=== PATIENT | male | born 1950 | race Caucasian/White ===

== ENCOUNTER 2016-05-29 06:54 | Day surgery (SDC) | payer BC ==
--- NOTE | ~2016-05-29 | EGD ---
EGD REPORT [facility] [address] [id number] NAME: SOCORRO MEIER : [birth year] STATUS : REG [facility]#: [id number] AGE: 65 ADM/REG DATE : 05/29/16 MR#: [id number] REPORT SERV DATE: 05/29/16 DICTATED BY: GLENN COWART DATE: 05/29/16 REPORT STATUS : Draft [facility]ANS[facility]ED BY: [facility] DATE: 05/29/16 [facility] Patient Name: Socorro Meier Date of : 1950 Attending MD: GLENN COWART MD Procedure Date No Time: 05/29/2016 Procedure: Colonoscopy Indications: Personal history of colonic polyps Referring MD: VALENTÍN ALVARENGA Medicines: Propofol per Anesthesia Complications: No immediate complications. Procedure: Pre-Anesthesia Assessment: - ASA Grade Assessment: III - A patient with severe systemic disease. After I obtained informed consent, the scope was passed under direct vision. Throughout the procedure, the patient's blood pressure, pulse, and oxygen saturations were monitored continuously. The CF [id number] was introduced through the anus and advanced to the cecum, identified by appendiceal orifice and ileocecal valve. The colonoscopy was performed without difficulty. The patient tolerated the procedure well. The quality of the bowel preparation was good. Findings: The perianal and digital rectal examinations were normal. A few small-mouthed diverticula were found in the sigmoid colon. Internal hemorrhoids were found during retroflexion and were Grade I (internal hemorrhoids that do not prolapse). The rest of the colon was normal. Impression: - Diverticulosis in the sigmoid colon. - Internal hemorrhoids. Recommendation: - Discharge patient to home (ambulatory). Procedure Code(s): --- Professional --- 41882, Colonoscopy, flexible, proximal to splenic flexure; diagnostic, with or without collection of specimen(s) by brushing or washing, with or without colon decompression (separate procedure) Diagnosis Code(s): --- Professional --- K64.0, First degree hemorrhoids K57.30, Diverticulosis of large intestine without EGD REPORT [facility] [address] [place] [address] NAME: SOCORRO MEIER : [birth year] STATUS : REG [facility] PAT#: [id number] AGE: 65 ADM/REG DATE : 05/29/16 MR#: [id number] REPORT SERV DATE: 05/29/16 DICTATED BY: GLENN COWART. DATE: 05/29/16 REPORT STATUS : Draft TRANSCRIBED BY: [employer] DATE: 05/29/16 perforation or abscess without bleeding Z86.010, Personal history of colonic polyps CPT copyright 2013 [employer]. All rights reserved. The codes documented in this report are preliminary and upon supervisor plasma review may be revised to meet current compliance requirements. Glenn Cowart MD GLENN COWART MD 05/29/2016 8:35 AM This report has been signed electronically. Number of Addenda: 0 Note Initiated On: 05/29/2016 7:41 AM Scope Withdrawal Time 0 hours 6 minutes 21 seconds [id number] [place] [address]
[~2016-05-29 06:54] MED LIST: CORAL CALCIUM PO; COSAMIN DS1 TAB PO; GLUCOPHAGE1000 MG PO; GYMNEMA PO; IBU800 PO; POTASSIUM GLUCO99 MG PO; PRIN5 PO; PROSTATE HEALTH; RED YEAS1 PO; TYLENOL ARTH650 MG PO; ZESTORETIC PO
[2016-10-24] MEDS ORDERED: GLUCOPHAGE1000 MG PO (18:21)
[2016-10-24] MEDS ORDERED: PRINZIDE1 TA1 PO (18:21)
[2016-10-24] MEDS ORDERED: RED YEAS1 PO (18:22)
[2016-10-24] MEDS ORDERED: [UNRECOGNIZED DRUG - OTHER] PO (18:22)
[2016-10-24] MEDS ORDERED: IBU800 PO (18:22)
[2016-10-24] MEDS ORDERED: TYLENOL SINUS PO (18:23)
[2016-10-24] MEDS ORDERED: ACIDOPHILU2 PO (18:23)
[2016-10-25] MEDS ORDERED: PROTONIX PO (15:51)
== END 2016-05-29 23:59 | disposition home health service (06) ==
LOC: DMU 06:54
PROVIDERS: Internal Medicine Gastroenterology
PROC: 0DJD8ZZ Inspection of Lower Intestinal Tract, Via Natural or Artificial Opening Endoscopic (ICD-10-PCS; principal; 2016-05-29 08:00)
DX: Z09 Encounter for follow-up examination after completed treatment for conditions other than malignant neoplasm (principal); K57.30 Diverticulosis of large intestine without perforation or abscess without bleeding; K64.0 First degree hemorrhoids; I10 Essential (primary) hypertension; E78.00 Pure hypercholesterolemia, unspecified; E11.9 Type 2 diabetes mellitus without complications; Z86.010 Personal history of colon polyps; Z87.891 Personal history of nicotine dependence
CPT/HCPCS: 82962